=== PATIENT | male | born 1965 | race Caucasian/White ===

== ENCOUNTER 2016-12-23 13:00 | Inpatient (IN) | payer OTHER ==
[2016-12-23 15:10] VITALS: BMI 19.2
--- NOTE | 2016-12-23 17:16 | HP ---
CIWA Score - CIWA Score Nausea/Vomitin Muscle Tremors: 3 Anxiety: 3 Agitation: 3 Paroxysmal Sweats: 2 Orientation: 0-Oriented Tacttile Disturbances: 2-Mild Itch/Numbness/Burn Auditory Disturbances: 2-Mild Harshness/Frighten Visual Disturbances: 2-Mild Sensitivity Headache: 2-Mild CIWA-Ar Total Score: 22 Admission ROS BHS - HPI Chief Complaint: I NEED HELP TO STOP DRINKING Allergies/Adverse Reactions: Allergies Allergy/AdvReac Type Severity Reaction Status Date / Time No Known Allergies Allergy Verified 12/23/16 16:52 History of Present Illness: THIS 51 YEARS OLD MALE WITH ALCOHOL DEPENDENCE,SEEKING DETOX,LAST TREATMENT 2012 [place] N[facility] DEPENDENCE DEPRESSION,INSOMNIA LONGEST PERIOD OF SOBRIETY Exam Limitations: No Limitations - Ebola screening Have you traveled outside of the country in the last 21 days: No Have you had contact with anyone from an Ebola affected area: No Have you been sick,other than usual withdrawal symptoms: No Do you have a fever: No - Review of Systems Constitutional: Loss of Appetite, Malaise, Night Sweats, Changes in sleep, Weakness, Unintentional Wgt. Loss EENT: reports: Hearing Loss, Nose Congestion (LEFT FOR YEAR) Respiratory: reports: Other (COPD) GI: reports: Diarrhea, Nausea, Vomiting, Abdominal cramping : reports: No Symptoms Reported Musculoskeletal: reports: Back Pain Integumentary: reports: Dryness Neuro: reports: Headache Endocrine: reports: No Symptoms Reported Hematology: reports: No Symptoms Reported Psychiatric: reports: No Sypmtoms Reported, Judgement Intact, Mood/Affect Appropiate, Orientated x3, Depressed Patient History - Patient Medical History Hx Anemia: No Hx Asthma: No Hx Chronic Obstructive Pulmonary Disease (COPD): Yes (COPD) Hx Cancer: No Hx Cardiac Disorders: No Hx Hypertension: No Hx Hypercholesterolemia: No Hx Pacemaker: No HX Cerebrovascular Accident: No Hx Seizures: No Hx Dementia: No Hx Diabetes: No Hx Gastrointestinal Disorders: No Hx Liver Disease: No Hx Genitourinary Disorders: No Hx Sexually Transmitted Disorders: No Hx Renal Disease (ESRD): No Hx Human Immunodeficiency Virus (HIV): No (08/02 LAST NEGATIVE) Hx Hepatitis C: No Hx Depression: Yes (NO MED) Hx Suicide Attempt: No Hx Bipolar Disorder: No Hx Schizophrenia: No Other Medical History: NO SUICIDAL,NO HOMICIDAL - Patient Surgical History Past Surgical History: No Hx Neurologic Surgery: No Hx Cataract Extraction: No Hx Cardiac Surgery: No Hx Lung Surgery: No Hx Breast Surgery: No Hx Breast Biopsy: No Hx Abdominal Surgery: No Hx Appendectomy: No Hx Cholecystectomy: No Hx Genitourinary Surgery: No Hx Section: No Hx Orthopedic Surgery: No Anesthesia Reaction: No - PPD History Previous Implant?: Yes Documented Results: Negative w/o proof Implanted On Prior R Admission?: No PPD to be Administered?: Yes - Smoking Cessation Smoking history: Current every day smoker Have you smoked in the past 12 months: Yes Aproximately how many cigarettes per day: 30 Hx Chewing Tobacco Use: No Initiated information on smoking cessation: Yes 'Breaking Loose' booklet given: 12/23/16 - Substance & Tx. History Hx Alcohol Use: Yes Hx Substance Use: No Substance Use Type: Alcohol Hx Substance Use Treatment: Yes ([address] [facility]) - Substances Abused Alcohol Route: Oral Frequency: Daily Amount used: LIQUOR- 2 PINTS Age of first use: 36 Date of Last Use: 12/23/16 Family Disease History - Family Disease History Family History: Denies Admission Physical Exam [facility] - Vital Signs Vital Signs: Vital Signs - 24 hr 12/23/16 15:08 Temperature 96.2 F L Pulse Rate 108 H Respiratory 20 Rate Blood Pressure 162/86 - Physical General Appearance: Yes: Moderate Distress, Tremorous, Irritable, Sweating, Anxious HEENTM: Yes: Normal ENT Inspection, MULUGETA, Pharynx Normal, Other (HARD OF HEARING LEFT) Respiratory: Yes: Lungs Clear, Normal Breath Sounds, No Respiratory Distress Neck: Yes: Within Normal Limits, Supple, Trachea in good position Breast: Yes: Within Normal Limits Cardiology: Yes: Tachycardia Abdominal: Yes: Normal Bowel Sounds, Flat, Soft Genitourinary: Yes: Within Normal Limits Back: Yes: Muscle Spasm Musculoskeletal: Yes: Back pain, Muscle Pain Extremities: Yes: Tremors Neurological: Yes: junior business analyst II-XII NML intact, Fully Oriented, Alert, Motor Strength 5/5 Integumentary: Yes: Dry Lymphatic: Yes: Within Normal Limits - Diagnostic (1) Alcohol dependence with uncomplicated withdrawal Current Visit: Yes Status: Acute (2) Alcohol dependence with intoxication Current Visit: Yes Status: Acute Qualifiers: Complication of substance-induced condition: uncomplicated Qualified Code(s): F10.220 - Alcohol dependence with intoxication, uncomplicated (3) COPD (chronic obstructive pulmonary disease) Current Visit: Yes Status: Chronic Qualifiers: COPD type: chronic bronchitis Chronic bronchitis type: unspecified Qualified Code(s): J42 - Unspecified chronic bronchitis (4) Weight loss Current Visit: Yes Status: Chronic (5) Hard of hearing Current Visit: Yes Status: Chronic Qualifiers: Hearing loss type: unspecified Laterality: unspecified laterality Qualified Code(s): H91.90 - Unspecified hearing loss, unspecified ear (6) Anxiety and depression Current Visit: Yes Status: Acute (7) Insomnia Current Visit: Yes Status: Acute Qualifiers: Insomnia type: unspecified Qualified Code(s): G47.00 - Insomnia, unspecified (8) Nicotine dependence Current Visit: Yes Status: Acute Qualifiers: Nicotine product type: cigarettes Substance use status: uncomplicated Qualified Code(s): F17.210 - Nicotine dependence, cigarettes, uncomplicated Cleared for Admission BHS - Detox or Rehab S Level of Care: Medically Managed Detox Regimen/Protocol: Librium BHS Breath Alcohol Content Breath Alcohol Content: 0.254 Urine Drug Screen - Results Drug Screen Negative: Yes
[2016-12-23] MEDS ORDERED: chlordiazePOXIDE HCL 25 MG CAPSULE PO PRN (17:27)
[2016-12-23] MEDS ORDERED: LOPERAMIDE HCL 2 MG CAPSULE PO PRN (17:28)
[2016-12-23] MEDS ORDERED: MENTHOL/PHENOL 1 EACH UD MM PRN (17:28)
[2016-12-23] MEDS ORDERED: P-EPHED 60MG/TRIPROLIDI 2.5MG TABLET PO PRN (17:28)
[2016-12-23] MEDS ORDERED: MAGNESIUM CITRATE 300 ML BOTTLE PO PRN (17:28)
[2016-12-23] MEDS ORDERED: ACETAMINOPHEN 325 MG TABLET (FP) PO PRN (17:28)
[2016-12-23] MEDS ORDERED: MAGNESIUM HYDROX 2400MG/30ML ORAL SUSPENSION 30 ML CUP PO PRN (17:28)
[2016-12-23] MEDS ORDERED: guaiFENesin/D-METHORPHAN HB 10 ML UNIT-DOSE CUPS PO PRN (17:28)
[2016-12-23] MEDS ORDERED: hydrOXYzine PAMOATE 50 MG CAPSULE (FP) PO PRN (17:28)
[2016-12-23] MEDS ORDERED: NICOTINE POLACRILEX 2 MG GUM BC PRN (17:28)
[2016-12-23] MEDS ORDERED: MAG HYDROX/AL HYDROX/SIMETH 30 ML UNIT-DOSE CUP PO PRN (17:28)
[2016-12-23] MEDS ORDERED: IBUPROFEN 400 MG TABLET (FP) PO PRN (17:28)
[2016-12-23] MEDS ORDERED: ALBUTEROL SO4 6.7 GM HFA INHALER IH PRN (17:32)
[2016-12-23] MEDS ORDERED: chlordiazePOXIDE HCL 25 MG CAPSULE PO ONE (18:45)
[2016-12-23] MEDS: NICOTINE 21 MG/24 HOURS TOPICAL PATCH TD SCH (18:51)
[2016-12-23] MEDS: THIAMINE HCL 100 MG TABLET (FP) PO SCH (22:11)
[2016-12-23] MEDS: chlordiazePOXIDE HCL 25 MG CAPSULE PO SCH (22:11)
[2016-12-23] MEDS: diphenhydrAMINE HCL 50 MG CAPSULE PO PRN (22:12)
[2016-12-23 22:37] LABS: URINE APPEARANCE CLEAR; URINE BILIRUBIN NEGATIVE (NEGATIVE); URINE BLOOD NEGATIVE (NEGATIVE); URINE COLOR COLORLESS; URINE GLUCOSE (UA) NEGATIVE (NEGATIVE); URINE KETONE NEGATIVE (NEGATIVE); URINE LEUK ESTERASE NEGATIVE (NEGATIVE); URINE NITRITE NEGATIVE (NEGATIVE); URINE PROTEIN NEGATIVE (NEGATIVE); URINE UROBILINOGEN NEGATIVE mg/dL (0.2-1.0)
[2016-12-24] MEDS: chlordiazePOXIDE HCL 25 MG CAPSULE PO SCH ×4 (05:39→22:15)
[2016-12-24] MEDS: NICOTINE 21 MG/24 HOURS TOPICAL PATCH TD SCH (10:10)
[2016-12-24] MEDS: PRENATAL VITAMINS W/ FOLIC ACID TABLET (FP) PO SCH (10:10)
--- NOTE | 2016-12-24 10:18 | PN ---
S CIWA - CIWA Score Nausea/Vomitin-Mild Nausea/No Vomiting Muscle Tremors: 4-Moderate,w/Arms Extend Anxiety: 4-Mod. Anxious/Guarded Agitation: 3 Paroxysmal Sweats: 3 Orientation: 0-Oriented Tacttile Disturbances: 0-None Auditory Disturbances: 0-None Visual Disturbances: 0-None Headache: 0-None Present CIWA-Ar Total Score: 15 BHS Progress Note (SOAP) Subjective: Anxiety,tremors,sweating,interrupted sleep,restless. Objective: 12/24/16 10:17 Vital Signs - 8 hr 12/24/16 12/24/16 12/24/16 04:07 06:30 09:31 Temperature 98.2 F 97.8 F Pulse Rate 84 78 98 H Respiratory 16 18 Rate Blood Pressure 181/89 162/86 Laboratory Last Values Urine Color Colorless 12/23/16 22:20 Urine Appearance Clear 12/23/16 22:20 Urine pH 6.0 (5.0-8.0) 12/23/16 22:20 Urine Protein Negative (NEGATIVE) 12/23/16 22:20 Urine Glucose (UA) Negative (NEGATIVE) 12/23/16 22:20 Urine Ketones Negative (NEGATIVE) 12/23/16 22:20 Urine Blood Negative (NEGATIVE) 12/23/16 22:20 Urine Nitrite Negative (NEGATIVE) 12/23/16 22:20 Urine Bilirubin Negative (NEGATIVE) 12/23/16 22:20 Urine Urobilinogen Negative mg/dL (0.2-1.0) 12/23/16 22:20 Ur Leukocyte Esterase Negative (NEGATIVE) 12/23/16 22:20 Assessment: 12/24/16 10:17 Withdrawal sx. Plan: Continue detox
--- NOTE | 2016-12-24 11:59 | CONSULT ---
[facility] Psychiatric Consult - Data Date of interview: 12/24/16 Admission source: [facility] Identifying data: First admission to [facility] for this 51 y/o male seeking detox treatment on for alcohol dependence.Patient is single without children,domiciled,unemployed and financially supported by relatives Substance Abuse History: Discussed in this session.Mr Currie confirms this report : Smoking Cessation. Smoking history: Current every day smoker. Have you smoked in the past 12 months: Yes. Aproximately how many cigarettes per day: 30. Hx Chewing Tobacco Use: No. Initiated information on smoking cessation: Yes. 'Breaking Loose' booklet given: 12/23/16. - Substance & Tx. History. Hx Alcohol Use: Yes. Hx Substance Use: No. Substance Use Type: Alcohol. Hx Substance Use Treatment: Yes (2012 [facility]). - Substances Abused. Alcohol. Route: Oral. Frequency: Daily. Amount used: LIQUOR- 2 PINTS. Age of first use: 36. Date of Last Use: 12/23/16 Medical History: COPD and weight loss. Psychiatric History: Patient denies. Physical/Sexual Abuse/Trauma History: Patient denies. Additional Comment: Drug Screen is negative. Mental Status Exam - Mental Status Exam Alert and Oriented to: Time, Place, Person Cognitive Function: Good Patient Appearance: Disheveled (frail,thin habitus) Mood: Nervous, Withdrawn Affect: Appropriate, Normal Range Patient Behavior: Fatigued, Appropriate, Cooperative Speech Pattern: Clear Voice Loudness: Normal Thought Process: Goal Oriented Thought Disorder: Not Present Hallucinations: Denies Suicidal Ideation: Denies Homicidal Ideation: Denies Insight/Judgement: Poor Sleep: Poorly, Difficulty falling asleep Appetite: Poor, Weight loss Muscle strength/Tone: Normal Gait/Station: Normal Psychiatric Findings - Problem List ([place] 1, 2,3) (1) Alcohol dependence with uncomplicated withdrawal Current Visit: Yes Status: Acute (2) Nicotine dependence Current Visit: Yes Status: Acute (3) Alcohol-induced mood disorder Current Visit: Yes Status: Acute (4) COPD (chronic obstructive pulmonary disease) Current Visit: Yes Status: Chronic (5) Hard of hearing Current Visit: Yes Status: Chronic (6) Insomnia Current Visit: Yes Status: Acute (7) Weight loss Current Visit: Yes Status: Chronic - Initial Treatment Plan Initial Treatment Plan: Psychoeducation.Detoxification in progress.Ambien 5 mg po hs prn.Patient is made aware of the potential for parasomnias.He is in agreement with this careplan.Observation.
[2016-12-24 12:34] LABS: MCH 33.7 pg (25.7-33.7); MCHC 33.3 g/dl (32.0-35.9); MEAN PLT VOLUME 9.1 fl (7.5-11.1); PLATELET COUNT 236 K/MM3 (134-434); RDW 16.5 % (11.9-15.9); WHITE BLOOD COUNT 6.7 K/mm3 (4.0-10.0)
[2016-12-24 12:49] LABS: ALBUMIN 3.4 g/dl (3.4-5.0); ALK PHOS 90 U/L (45-117); ANION GAP 8 (8-16); BILIRUBIN,TOTAL 1.1 mg/dL (0.2-1.0); CALCIUM 8.9 mg/dL (8.5-10.1); CO2 32 mmol/L (21-32); CREATININE 0.7 mg/dL (0.7-1.3); GLUCOSE,RANDOM 93 mg/dL (74-106); SGOT/AST 90 U/L (15-37); SGPT/ALT 71 U/L (12-78); TOT PROT 6.6 g/dl (6.4-8.2)
[2016-12-24] MEDS: THIAMINE HCL 100 MG TABLET (FP) PO SCH (22:15)
[2016-12-24] MEDS: diphenhydrAMINE HCL 50 MG CAPSULE PO PRN (22:16)
[2016-12-25] MEDS: chlordiazePOXIDE HCL 25 MG CAPSULE PO SCH ×3 (05:31→17:21)
[2016-12-25] MEDS ORDERED: cloNIDine HCL 0.1 MG TABLET PO ONE (09:47)
[2016-12-25] MEDS: NICOTINE 21 MG/24 HOURS TOPICAL PATCH TD SCH (10:09)
[2016-12-25] MEDS: PRENATAL VITAMINS W/ FOLIC ACID TABLET (FP) PO SCH (10:09)
--- NOTE | 2016-12-25 11:58 | PN ---
[facility] CIWA - CIWA Score Nausea/Vomitin Muscle Tremors: 4-Moderate,w/Arms Extend Anxiety: 3 Agitation: 2 Paroxysmal Sweats: 3 Orientation: 0-Oriented Tacttile Disturbances: 2-Mild Itch/Numbness/Burn Auditory Disturbances: 2-Mild Harshness/Frighten Visual Disturbances: 0-None Headache: 0-None Present CIWA-Ar Total Score: 18 [facility] Progress Note (SOAP) Subjective: Diarrhea, Tremors, Sweating. Objective: PT. A & O X 3. NO ACUTE DISTRESS. PT. DENIES CHEST PAIN. 12/25/16 11:56 Vital Signs Temperature 97.7 F 12/25/16 09:35 Pulse Rate 94 H 12/25/16 09:35 Respiratory Rate 20 12/25/16 09:35 Blood Pressure 165/93 12/25/16 09:35 O2 Sat by Pulse Oximetry (%) Laboratory Tests 12/23/16 12/24/16 12/24/16 22:20 07:40 07:40 WBC 6.7 RBC 4.05 Hgb 13.6 Hct 40.9 MCV 101.0 H MCH 33.7 MCHC 33.3 RDW 16.5 H Plt Count 236 MPV 9.1 Sodium 140 Potassium 3.8 Chloride 100 Carbon Dioxide 32 Anion Gap 8 BUN 14 Creatinine 0.7 Creat Clearance w eGFR > 60 Random Glucose 93 Calcium 8.9 Total Bilirubin 1.1 H AST 90 H ALT 71 Alkaline Phosphatase 90 Total Protein 6.6 Albumin 3.4 Urine Color Colorless Urine Appearance Clear Urine pH 6.0 Ur Specific [place] <= 1.005 Urine Protein Negative Urine Glucose (UA) Negative Urine Ketones Negative Urine Blood Negative Urine Nitrite Negative Urine Bilirubin Negative Urine Urobilinogen Negative Ur Leukocyte Esterase Negative RPR Titer 12/24/16 07:40 WBC RBC Hgb Hct MCV MCH MCHC RDW Plt Count MPV Sodium Potassium Chloride Carbon Dioxide Anion Gap BUN Creatinine Creat Clearance w eGFR Random Glucose Calcium Total Bilirubin AST ALT Alkaline Phosphatase Total Protein Albumin Urine Color Urine Appearance Urine pH Ur Specific [place] Urine Protein Urine Glucose (UA) Urine Ketones Urine Blood Urine Nitrite Urine Bilirubin Urine Urobilinogen Ur Leukocyte Esterase RPR Titer Nonreactive LABS NOTED. Assessment: 12/25/16 11:57 WITHDRAWAL SYMPTOMS. Plan: CONTINUE DETOX. CLONIDINE, 0.2 MG PO X 1 FOR ELEVATED BP AND FOR DETOX SYMPTOMS. CONTINUE TO MONITOR BP. REPEAT AST ON 12/26/2016 FOR ELEVATED ADMISSION VALUE.
--- NOTE | 2016-12-25 14:52 | EKG ---
Test Reason : Blood Pressure : / mmHG Vent. Rate : 095 BPM Atrial Rate : 095 BPM P-R Int : 160 ms QRS Dur : 110 ms QT Int : 352 ms P-R-T Axes : 081 082 074 degrees QTc Int : 442 ms NORMAL SINUS RHYTHM POSSIBLE LEFT ATRIAL ENLARGEMENT INCOMPLETE RIGHT BUNDLE BRANCH BLOCK SEPTAL INFARCT , AGE UNDETERMINED ABNORMAL ECG NO PREVIOUS ECGS AVAILABLE Confirmed by JUANA MONTERO MD ([id number]) on 12/25/2016 2:51:21 PM Referred By: Confirmed By:JUANA MONTERO MD
[2016-12-25] MEDS: THIAMINE HCL 100 MG TABLET (FP) PO SCH (22:08)
[2016-12-25] MEDS: chlordiazePOXIDE 5 MG CAPSULE PO SCH (22:08)
[2016-12-25] MEDS: diphenhydrAMINE HCL 50 MG CAPSULE PO PRN (22:08)
[2016-12-26] MEDS: chlordiazePOXIDE 5 MG CAPSULE PO SCH ×3 (05:47→17:10)
--- NOTE | 2016-12-26 10:03 | PN ---
[facility] Progress Note (SOAP) Subjective: Sweating,interrupted sleep,restless Objective: 12/26/16 10:02 Vital Signs - 8 hr 12/26/16 12/26/16 12/26/16 04:15 06:37 09:30 Temperature 97.5 F L 97.1 F L Pulse Rate 88 85 Respiratory 18 18 18 Rate Blood Pressure 141/89 123/82 Laboratory Last Values WBC 6.7 K/mm3 (4.0-10.0) 12/24/16 07:40 RBC 4.05 M/mm3 (4.00-5.60) 12/24/16 07:40 Hgb 13.6 GM/dL (11.7-16.9) 12/24/16 07:40 Hct 40.9 % (35.4-49) 12/24/16 07:40 MCV 101.0 fl (80-96) H 12/24/16 07:40 MCH 33.7 pg (25.7-33.7) 12/24/16 07:40 MCHC 33.3 g/dl (32.0-35.9) 12/24/16 07:40 RDW 16.5 % (11.9-15.9) H 12/24/16 07:40 Plt Count 236 K/MM3 (134-434) 12/24/16 07:40 MPV 9.1 fl (7.5-11.1) 12/24/16 07:40 Sodium 140 mmol/L (136-145) 12/24/16 07:40 Potassium 3.8 mmol/L (3.5-5.1) 12/24/16 07:40 Chloride 100 mmol/L (98-107) 12/24/16 07:40 Carbon Dioxide 32 mmol/L (21-32) 12/24/16 07:40 Anion Gap 8 (8-16) 12/24/16 07:40 BUN 14 mg/dL (7-18) 12/24/16 07:40 Creatinine 0.7 mg/dL (0.7-1.3) 12/24/16 07:40 Creat Clearance w eGFR > 60 (>60) 12/24/16 07:40 Random Glucose 93 mg/dL (74-106) 12/24/16 07:40 Calcium 8.9 mg/dL (8.5-10.1) 12/24/16 07:40 Total Bilirubin 1.1 mg/dL (0.2-1.0) H 12/24/16 07:40 AST 90 U/L (15-37) H 12/24/16 07:40 ALT 71 U/L (12-78) 12/24/16 07:40 Alkaline Phosphatase 90 U/L (45-117) 12/24/16 07:40 Total Protein 6.6 g/dl (6.4-8.2) 12/24/16 07:40 Albumin 3.4 g/dl (3.4-5.0) 12/24/16 07:40 Urine Color Colorless 12/23/16 22:20 Urine Appearance Clear 12/23/16 22:20 Urine pH 6.0 (5.0-8.0) 12/23/16 22:20 Ur Specific [place] <= 1.005 (1.005-1.025) 12/23/16 22:20 Urine Protein Negative (NEGATIVE) 12/23/16 22:20 Urine Glucose (UA) Negative (NEGATIVE) 12/23/16 22:20 Urine Ketones Negative (NEGATIVE) 12/23/16 22:20 Urine Blood Negative (NEGATIVE) 12/23/16 22:20 Urine Nitrite Negative (NEGATIVE) 12/23/16 22:20 Urine Bilirubin Negative (NEGATIVE) 12/23/16 22:20 Urine Urobilinogen Negative mg/dL (0.2-1.0) 12/23/16 22:20 Ur Leukocyte Esterase Negative (NEGATIVE) 12/23/16 22:20 RPR Titer Nonreactive (NONREACTIVE) 12/24/16 07:40 labs noted Assessment: 12/26/16 10:02 Withdrawal sx Plan: Continue detox
[2016-12-26] MEDS: PRENATAL VITAMINS W/ FOLIC ACID TABLET (FP) PO SCH (10:21)
[2016-12-26] MEDS: NICOTINE 21 MG/24 HOURS TOPICAL PATCH TD SCH (10:21)
[2016-12-26 21:57] VITALS: PULSE 95
[2016-12-26] MEDS: THIAMINE HCL 100 MG TABLET (FP) PO SCH (22:08)
[2016-12-26] MEDS: diphenhydrAMINE HCL 50 MG CAPSULE PO PRN (22:08)
[2016-12-26] MEDS: chlordiazePOXIDE HCL 10 MG CAPSULE PO SCH (22:08)
[2016-12-27] MEDS: chlordiazePOXIDE HCL 10 MG CAPSULE PO SCH ×2 (05:41→10:08)
[2016-12-27 06:20] VITALS: BP 140/82; TEMP 97.6
[2016-12-27] MEDS: PRENATAL VITAMINS W/ FOLIC ACID TABLET (FP) PO SCH (10:08)
[2016-12-27] MEDS: NICOTINE 21 MG/24 HOURS TOPICAL PATCH TD SCH (10:09)
--- NOTE | 2016-12-27 11:10 | DS ---
[facility] Detox Discharge Summary Admission Date: 12/23/16 Discharge Date: 12/27/16 - History Present History: Alcohol Dependence Additional Comments: PATIENT RETURNING TO OUTPATIENT AA PROGRAM NEAR HIS HOME THAT HE ATTENDED PRIOR TO ADMISSION TO DETOX. PATIENT ADVISED TO FOLLOW-UP THERE FOR AFTERCARE PER DISCHARGE ARRANGEMENT. Pertinent Past History: COPD (Chronic Bronchitis), Anxiety / Depression, Hard of Hearing, Insomnia. - Physical Exam Results Vital Signs: Vital Signs Temperature 97.6 F 12/27/16 06:19 Pulse Rate 95 H 12/27/16 06:19 Respiratory Rate 18 12/27/16 06:19 Blood Pressure 140/82 12/27/16 06:19 O2 Sat by Pulse Oximetry (%) Pertinent Admission Physical Exam Findings: WITHDRAWAL SYMPTOMS. Laboratory Tests 12/23/16 12/24/16 12/24/16 22:20 07:40 07:40 WBC 6.7 RBC 4.05 Hgb 13.6 Hct 40.9 MCV 101.0 H MCH 33.7 MCHC 33.3 RDW 16.5 H Plt Count 236 MPV 9.1 Sodium 140 Potassium 3.8 Chloride 100 Carbon Dioxide 32 Anion Gap 8 BUN 14 Creatinine 0.7 Creat Clearance w eGFR > 60 Random Glucose 93 Calcium 8.9 Total Bilirubin 1.1 H AST 90 H ALT 71 Alkaline Phosphatase 90 Total Protein 6.6 Albumin 3.4 Urine Color Colorless Urine Appearance Clear Urine pH 6.0 Ur Specific [place] <= 1.005 Urine Protein Negative Urine Glucose (UA) Negative Urine Ketones Negative Urine Blood Negative Urine Nitrite Negative Urine Bilirubin Negative Urine Urobilinogen Negative Ur Leukocyte Esterase Negative RPR Titer 12/24/16 12/26/16 07:40 08:50 WBC RBC Hgb Hct MCV MCH MCHC RDW Plt Count MPV Sodium Potassium Chloride Carbon Dioxide Anion Gap BUN Creatinine Creat Clearance w eGFR Random Glucose Calcium Total Bilirubin AST 86 H ALT Alkaline Phosphatase Total Protein Albumin Urine Color Urine Appearance Urine pH Ur Specific [place] Urine Protein Urine Glucose (UA) Urine Ketones Urine Blood Urine Nitrite Urine Bilirubin Urine Urobilinogen Ur Leukocyte Esterase RPR Titer Nonreactive LABS NOTED. - Treatment Hospital Course: Detox Protocol Followed, Detoxed Safely, Responded well, Discharged Condition Good - Medication Discharge Medications: Ambulatory Orders NK [No Known Home Medication] 12/23/16 - Diagnosis (1) Alcohol dependence with uncomplicated withdrawal Current Visit: Yes Status: Acute (2) Nicotine dependence Current Visit: Yes Status: Chronic Qualifiers: Nicotine product type: cigarettes Substance use status: uncomplicated Qualified Code(s): F17.210 - Nicotine dependence, cigarettes, uncomplicated (3) COPD (chronic obstructive pulmonary disease) Current Visit: Yes Status: Chronic Qualifiers: COPD type: chronic bronchitis Chronic bronchitis type: unspecified Qualified Code(s): J42 - Unspecified chronic bronchitis (4) Hard of hearing Current Visit: Yes Status: Chronic Qualifiers: Hearing loss type: unspecified Laterality: unspecified laterality Qualified Code(s): H91.90 - Unspecified hearing loss, unspecified ear (5) Alcohol dependence with intoxication Current Visit: Yes Status: Acute Qualifiers: Complication of substance-induced condition: uncomplicated Qualified Code(s): F10.220 - Alcohol dependence with intoxication, uncomplicated (6) Anxiety and depression Current Visit: Yes Status: Acute (7) Insomnia Current Visit: Yes Status: Acute Qualifiers: Insomnia type: unspecified Qualified Code(s): G47.00 - Insomnia, unspecified (8) Weight loss Current Visit: Yes Status: Chronic (9) Alcohol-induced mood disorder Current Visit: Yes Status: Acute - AMA Did Patient Leave Against Medical Advice: No
== END 2016-12-27 12:52 | disposition home or self-care (01) | DRG 775 ==
LOC: YASAS 13:00 → Y3N 18:22
PROVIDERS: ADMIT Internal Medicine; ATTEND Internal Medicine
PROC: HZ2ZZZZ Detoxification Services for Substance Abuse Treatment (ICD-10-PCS; principal; 2016-12-23)
DX: F10.230 Alcohol dependence with withdrawal, uncomplicated (principal); F10.24 Alcohol dependence with alcohol-induced mood disorder; F17.210 Nicotine dependence, cigarettes, uncomplicated; F41.8 Other specified anxiety disorders; J42 Unspecified chronic bronchitis; H91.90 Unspecified hearing loss, unspecified ear; G47.00 Insomnia, unspecified; R00.0 Tachycardia, unspecified; Z87.898 Personal history of other specified conditions
CPT/HCPCS: 36415; 80053; 81003; 84450; 85027; 86593; 93005; 93010

== ENCOUNTER 2017-01-01 16:25 | Emergency (ER) | payer OTHER ==
--- NOTE | 2017-01-01 16:47 | PDOC ---
History of Present Illness - General Chief Complaint: Injury Stated Complaint: INTOX Time Seen by Provider: 01/01/17 16:46 - History of Present Illness Initial Comments: 51 year old male alcoholic (every day one pint drinker) with previous detox visits (most recently in [place] in 2012) presenting intoxicated after a reported but unwitnessed fall outside of a detox facility he was attempting to gain entry into. Patient himself does not recall any fall or head trauma because he was intoxicated all day and has poor recollection of the events. There was no report of bowel or bladder incontinence. He denies any admissions for withdrawals or ever experiencing withdrawal symptoms. He has a home and was attending alcohol anonymous up until yesterday as he was to be admitted to a detox facility but his admission was delayed until Friday. Denies any loss of consciousness, headache, visual symptoms, chest pain, cough, fevers, chills, or other sick symptoms. 01/01/17 17:02 Past History - Past Medical History Allergies/Adverse Reactions: Allergies Allergy/AdvReac Type Severity Reaction Status Date / Time No Known Allergies Allergy Verified 01/01/17 16:44 Home Medications: Ambulatory Orders NK [No Known Home Medication] 12/23/16 Anemia: No Asthma: No Cancer: No Cardiac Disorders: No CVA: No COPD: Yes (COPD) Dementia: No Diabetes: No GI Disorders: No Disorders: No HTN: No Hypercholesterolemia: No Kidney Stones: No Liver Disease: No Suicide Attempt (Hx): No Seizures: No - Surgical History Abdominal Surgery: No Appendectomy: No Cardiac Surgery: No Cholecystectomy: No Lung Surgery: No Neurologic Surgery: No Orthopedic Surgery: No - Reproductive History Testicular Surgery: No - Psycho/Social/Smoking Cessation Hx Anxiety: Yes Suicidal Ideation: No Smoking History: Current every day smoker Have you smoked in the past 12 months: Yes Number of Cigarettes Smoked Daily: 40 Information on smoking cessation initiated: No 'Breaking Loose' booklet given: 12/23/16 Hx Alcohol Use: Yes Drug/Substance Use Hx: No Substance Use Type: Alcohol Hx Substance Use Treatment: Yes (2012 [facility]) Review of Systems - Review of Systems Constitutional: No: Chills, Diaphoresis HEENTM: No: Blurred Vision, Tearing Respiratory: No: Cough, Shortness of Breath Cardiac (ROS): No: Chest Pain, Irregular Heart Rate, Lightheadedness, Syncope ABD/GI: No: Diarrhea, Nausea, Vomiting : No: Dysuria, Incontinence *Physical Exam - Vital Signs Last Vital Signs Temp Pulse Resp BP Pulse Ox 98.2 F 109 H 22 144/88 93 L 01/01/17 16:25 01/01/17 16:25 01/01/17 16:25 01/01/17 16:25 01/01/17 16:25 - Physical Exam General Appearance: Yes: Nourished, Appropriately Dressed, Intoxicated. No: Apparent Distress HEENT: positive: EOMI, MULUGETA, Other (slurred speech). negative: Normal Voice Neck: positive: Trachea midline, Normal Thyroid, Supple. negative: Tender, Rigid Respiratory/Chest: positive: Lungs Clear, Normal Breath Sounds, Other ( Transmitted upper respiratory sounds). negative: Chest Tender, Respiratory Distress, Accessory Muscle Use Cardiovascular: positive: Regular Rhythm, Regular Rate, S1, S2. negative: Edema , JVD, Murmur Gastrointestinal/Abdominal: positive: Normal Bowel Sounds, Flat, Soft. negative : Tender, Organomegaly Musculoskeletal: positive: Normal Inspection, Other (slight tenderness to palpation over the posterior lateral right scalp. No swelling, bleeding, or open wound. Two small loya hemangiomas over the bald spot in the top posterior portion of his head. ) Integumentary: positive: Normal Color, Dry, Warm Neurologic: positive: Fully Oriented, Alert, Motor Strength 5/5. negative: Normal Mood/Affect (Slightly agitated, continuously asking to smoke but slightly unstable on his feet. ), Normal Response ED Treatment Course - LABORATORY CBC & Chemistry Diagram: 01/01/17 17:40 01/01/17 17:40 Medical Decision Making - Medical Decision Making 51 year old male alcoholic presenting after suspected fall with head trauma but now injury sequelae, focal deficits, dennis sign, hemotympanum, racoon eyes , or other sign of high mechanism of injury. However, the patient is clearly intoxicated and physical exam could be unreliable, so will get a ct scan of his head and basic labs along with an alcohol level. 01/01/17 18:58 Patient was agitated and had to be chemically restrained with 2 Ativan, 5 Haldol , and 25 iv Benadryl after these drugs were not working in that order. Patient was also physically restrained. He was desating once adequately sedated while sleeping so nasal cannula at 4 liters was placed and his restraints were removed so he could go to CT. His labs all within expected levels (slightly elevated LFTs) with etoh level of 324. Patient signed out to Dr. Boudreaux in stable condition pending CT. *DC/Admit/Observation/Transfer Diagnosis at time of Disposition: Intoxication - Attestations Physician Attestion: 01/01/17 19:33 I, Dr. Maryam Vasquez, attest that this document has been prepared under my direction and personally reviewed by me in its entirety. I further attest, that it accurately reflects all work, treatment, procedures and medical decision -making performed by me. 01/01/17 19:34
[2017-01-01 17:53] LABS: BASOPHIL 0.9 % (0-2.0); EOSINOPHIL 1.3 % (0-4.5); MCH 33.8 pg (25.7-33.7); MCHC 34.1 g/dl (32.0-35.9); MEAN CELL VOLUME 99.4 fl (80-96); MEAN PLT VOLUME 8.9 fl (7.5-11.1); NEUTROPHILS 51.6 % (42.8-82.8); PLATELET COUNT 348 K/MM3 (134-434); RDW 16.3 % (11.9-15.9); WHITE BLOOD COUNT 10.6 K/mm3 (4.0-10.0)
[2017-01-01] MEDS ORDERED: LORazepam 2 MG/ML SDV VIAL ONE (18:17)
[2017-01-01 18:27] LABS: ANION GAP 4 (8-16); CALCIUM 9.5 mg/dL (8.5-10.1); CO2 35 mmol/L (21-32); CREATININE 0.8 mg/dL (0.7-1.3); GLUCOSE,RANDOM 110 mg/dL (74-106); MAGNESIUM 1.7 mg/dL (1.8-2.4); PHOSPHOROUS 4.6 mg/dL (2.5-4.9); SGOT/AST 116 U/L (15-37); SGPT/ALT 104 U/L (12-78)
[2017-01-01 18:29] LABS: ALK PHOS 118 U/L (45-117); BILIRUBIN,TOTAL 0.9 mg/dL (0.2-1.0)
--- NOTE | 2017-01-01 18:34 | PDOC ---
Attending Attestation - Resident Resident Name: Maryam Vasquez - ED Attending Attestation I have performed the following: I have examined & evaluated the patient, The case was reviewed & discussed with the resident, I agree w/resident's findings & plan, Exceptions are as noted - HPI HPI: 01/01/17 18:32 51 yo male with h/o tobacco use, alchohol abuse ( recent alcohol abuse x 48 hours ) was sober prior for 2 weeks after detox. [facility] currently intoxicated. states he has been drinking heavily. per nursing report, pt had a fall in the parking lot of [employer] [facility], and left was told he has to return on friday. states has h/o withdrawal sxs , no h/o withdrawal seizure or hallucination. 01/01/17 18:37 - Physicial Exam PE: 01/01/17 18:38 awake alert NAD. head atraumatic. no cervical spine awake alert . skin warm and dry. lungs with expiratory wheezing bilaterally. heart reg tachycardia. no m /r/g. abd soft NT ND. - Medical Decision Making 01/01/17 18:40 pt with h/o etoh abuse, recent intoxication and reported head trauma. plan benzo 's prn, head ct, reassess when sober for withdrawal. labs r/o hypokalemia. Heart Score/ECG Review #1 General ECG Interpretation: Sinus Rhythm, Normal Rate (100), Normal Intervals, No acute ischemic changes Compared to previous ECG there are: No significant change (comparison 12/23/16) - ECG Intrepretation Rhythm: Regular Rhythm
[2017-01-01] MEDS ORDERED: HALOPERIDOL LACTATE 5 MG/ML ONE (18:40)
[2017-01-01] MEDS ORDERED: HALOPERIDOL LACTATE 5 MG/ML IM ONE (18:40)
[2017-01-01 19:06] LABS: HIV 1 & 2 AB NEGATIVE; HIV 1 AGp24 NEGATIVE
[2017-01-02] MEDS ORDERED: chlordiazePOXIDE HCL 25 MG CAPSULE PO ONE (06:50)
[2017-01-02] MEDS ORDERED: chlordiazePOXIDE HCL 25 MG CAPSULE ONE (06:51)
--- NOTE | 2017-01-02 06:51 | PDOC ---
*Physical Exam - Vital Signs Last Vital Signs Temp Pulse Resp BP Pulse Ox 98.2 F 87 18 134/78 95 01/01/17 16:25 01/01/17 23:55 01/01/17 23:55 01/01/17 23:55 01/01/17 23:55 ED Treatment Course - LABORATORY CBC & Chemistry Diagram: 01/01/17 17:40 01/01/17 17:40 - ADDITIONAL ORDERS Additional order review: 01/01/17 17:40 RBC 4.66 MCV 99.4 H MCHC 34.1 RDW 16.3 H MPV 8.9 Neutrophils % 51.6 Lymphocytes % 39.9 Monocytes % 6.3 Eosinophils % 1.3 Basophils % 0.9 - Medications Given in the ED: ED Medications Discontinued Medications Generic Name Dose Route Start Last Admin Trade Name Abilio PRN Reason Stop Dose Admin Diphenhydramine HCl 25 mg 01/01/17 19:09 01/01/17 19:18 Benadryl Injection - IVPUSH 01/01/17 19:10 25 mg ONCE ONE Administration Haloperidol 5 mg 01/01/17 18:40 01/01/17 18:40 Haldol Injection (Fast Acting) - IM 01/01/17 18:41 5 mg ONCE ONE Administration Lorazepam 2 mg 01/01/17 18:07 01/01/17 18:15 Ativan Injection - IVPUSH 01/01/17 18:08 2 mg ONCE ONE Administration *DC/Admit/Observation/Transfer Diagnosis at time of Disposition: Intoxication - Discharge Dispostion Admit: No - Patient Instructions Printed Discharge Instructions: DI for Alcohol Abuse
[2017-01-02 09:44] VITALS: TEMP 98.4
--- NOTE | 2017-01-02 10:24 | PDOC ---
*Physical Exam - Vital Signs Last Vital Signs Temp Pulse Resp BP Pulse Ox 98.4 F 87 18 135/80 96 01/02/17 09:41 01/02/17 09:41 01/02/17 09:41 01/02/17 09:41 01/02/17 09:41 ED Treatment Course - LABORATORY CBC & Chemistry Diagram: 01/01/17 17:40 01/01/17 17:40 - ADDITIONAL ORDERS Additional order review: 01/01/17 17:40 RBC 4.66 MCV 99.4 H MCHC 34.1 RDW 16.3 H MPV 8.9 Neutrophils % 51.6 Lymphocytes % 39.9 Monocytes % 6.3 Eosinophils % 1.3 Basophils % 0.9 - Medications Given in the ED: ED Medications Discontinued Medications Generic Name Dose Route Start Last Admin Trade Name Abilio PRN Reason Stop Dose Admin Chlordiazepoxide HCl 50 mg 01/02/17 06:50 01/02/17 06:53 Librium - PO 01/02/17 06:51 50 mg ONCE ONE Administration Diphenhydramine HCl 25 mg 01/01/17 19:09 01/01/17 19:18 Benadryl Injection - IVPUSH 01/01/17 19:10 25 mg ONCE ONE Administration Haloperidol 5 mg 01/01/17 18:40 01/01/17 18:40 Haldol Injection (Fast Acting) - IM 01/01/17 18:41 5 mg ONCE ONE Administration Lorazepam 2 mg 01/01/17 18:07 01/01/17 18:15 Ativan Injection - IVPUSH 01/01/17 18:08 2 mg ONCE ONE Administration Medical Decision Making - Medical Decision Making 01/02/17 10:19 Vital Signs Temperature 98.4 F 01/02/17 09:41 Pulse Rate 87 01/02/17 09:41 Respiratory Rate 18 01/02/17 09:41 Blood Pressure 135/80 01/02/17 09:41 O2 Sat by Pulse Oximetry (%) 96 01/02/17 09:41 Patient signed out to me by overnight attending Dr. Hansen, pending possible transfer to detox. I spoke with Av Del Rio at [facility] who states that patient is not eligible for detox as he started drinking again for only 24 hours after being sober for 2 weeks. He did recommend rehabilitation for the patient however they do not have any rehabilitation beds in the facility. I had our shelter case manager assess the patient, he was given resources for detox or rehabilitation outside of [facility]. He is currently clinically sober and is not actively withdrawing, with no tongue fasciculations or tremors or hallucinations. Vitals wnl, no tachycardia or hypertension to suggest withdrawal. Patient stable for discharge home. *DC/Admit/Observation/Transfer Diagnosis at time of Disposition: Intoxication - Referrals - Patient Instructions Printed Discharge Instructions: DI for Alcohol Abuse - Post Discharge Activity
[2017-01-02 10:42] VITALS: BP 160/80; PULSE 84
--- NOTE | 2017-01-02 14:53 | EKG ---
Test Reason : Blood Pressure : / mmHG Vent. Rate : 100 BPM Atrial Rate : 100 BPM P-R Int : 178 ms QRS Dur : 096 ms QT Int : 348 ms P-R-T Axes : 082 081 072 degrees QTc Int : 448 ms NORMAL SINUS RHYTHM INCOMPLETE RIGHT BUNDLE BRANCH BLOCK SEPTAL INFARCT (CITED ON OR BEFORE 23-DEC-2016) ABNORMAL ECG WHEN COMPARED WITH ECG OF 23-DEC-2016 17:57, NO SIGNIFICANT CHANGE WAS FOUND Confirmed by JUNE HUNT MD ([id number]) on 01/02/2017 2:53:09 PM Referred By: Confirmed By:JUNE HUNT MD
== END 2017-01-02 10:42 | disposition home or self-care (01) ==
LOC: JER 16:25
PROC: 3E033GC Introduction of Other Therapeutic Substance into Peripheral Vein, Percutaneous Approach (ICD-10-PCS; principal; 2017-01-01)
PROC: 3E023GC Introduction of Other Therapeutic Substance into Muscle, Percutaneous Approach (ICD-10-PCS; 2017-01-01)
PROC: 3E033NZ Introduction of Analgesics, Hypnotics, Sedatives into Peripheral Vein, Percutaneous Approach (ICD-10-PCS; 2017-01-01)
DX: F10.120 Alcohol abuse with intoxication, uncomplicated (principal); F17.210 Nicotine dependence, cigarettes, uncomplicated; J44.9 Chronic obstructive pulmonary disease, unspecified
CPT/HCPCS: 36415; 70450-TC; 80053; 80307; 83735; 84100; 85025; 87389; 93005; 93010; 99284-25